=== PATIENT | male | born 1970 | race Caucasian/White ===

== ENCOUNTER 2022-05-08 11:18 | Emergency (ER) | payer MEDICAID ==
[~2022-05-08] VITALS: Ht 190.5 cm; Wt 133.8 kg
[~2022-05-08 11:18] MED LIST: APIX5TAB PO; DEC1 PO; DILT30TA18 PO; HYDR-5092 PO; SOTA80TA PO
[2022-05-08 11:30] VITALS: BP 166/94
[2022-05-08] MEDS ORDERED: KETOROLAC 30 MG/ML VIAL IM ONE (12:30)
[2022-05-08] MEDS ORDERED: NAPR-1704 PO (12:31)
[2022-05-08] MEDS ORDERED: IBUP-2213 PO (12:39)
[2022-05-08] MEDS ORDERED: ACET-8386 PO (12:54)
[2022-05-08 13:10] VITALS: BP 134/87
== END 2022-05-08 13:10 | disposition home or self-care (01) ==
LOC: MED 11:18
DX: M17.11 Unilateral primary osteoarthritis, right knee (principal); Z79.899 Other long term (current) drug therapy; W19.XXXA Unspecified fall, initial encounter; Y93.89 Activity, other specified; Y93.82 Activity, spectator at an event; Y99.8 Other external cause status
CPT/HCPCS: 73562; 96372; 99283; J1885

== ENCOUNTER 2023-07-02 21:35 | Emergency (ER) | payer MEDICAID ==
[~2023-07-02] VITALS: Ht 190.5 cm; Wt 131.5 kg
[~2023-07-02 21:35] MED LIST changes: +ACET-8905 PO; +IBUP-2213 PO
[2023-07-02 21:55] VITALS: BP 148/82; PULSE 71; RESP 16; TEMP 98; O2SAT 99
[2023-07-02] MEDS ORDERED: IBUPROFEN 600 MG TAB PO ONE (22:35)
[2023-07-02 22:39] VITALS: O2SAT 99
[2023-07-02] MEDS ORDERED: IBUPROFEN 600 MG TAB ONE (23:38)
== END 2023-07-03 00:40 | disposition home or self-care (01) ==
LOC: MED 21:35
DX: S39.012A Strain of muscle, fascia and tendon of lower back, initial encounter (principal); Z79.899 Other long term (current) drug therapy; Z79.01 Long term (current) use of anticoagulants; Z79.1 Long term (current) use of non-steroidal anti-inflammatories (NSAID); I25.2 Old myocardial infarction; W18.39XA Other fall on same level, initial encounter; Y92.89 Other specified places as the place of occurrence of the external cause; Y93.89 Activity, other specified; Y99.8 Other external cause status
CPT/HCPCS: 72110; 72170; 99284

== ENCOUNTER 2023-07-03 17:31 | Inpatient (IN) | payer MEDICAID ==
[~2023-07-03] VITALS: Ht 180.3 cm; Wt 126.6 kg
[2023-07-03 17:46] VITALS: BP 111/58; PULSE 96; RESP 18; TEMP 97.8; O2SAT 100
[2023-07-03 20:36] LABS: BASOPHILS % (AUTO) 0.4 % (0.0-2.0); EOSINOPHILS # (AUTO) 0.4 K/uL (0-0.4); EOSINOPHILS % (AUTO) 3.6 % (0.0-4.0); HEMATOCRIT 41.8 % (36-52); HEMOGLOBIN 14.1 g/dL (12.0-18.0); LYMPHOCYTES # (AUTO) 1.9 K/uL (2.0-11.5); LYMPHOCYTES % (AUTO) 17.5 % (20.5-51.1); MEAN CORPUSCULAR HEMOGLOBIN 33 pg (27-31); MEAN CORPUSCULAR HGB CONC 34 g/dL (33-37); MEAN CORPUSCULAR VOLUME 97.3 fL (80-94); MONOCYTES # (AUTO) 0.7 K/uL (0.8-1.0); MONOCYTES % (AUTO) 6.3 % (1.7-9.3); NEUTROPHILS # (AUTO) 7.8 K/uL (1.8-7.7); NEUTROPHILS % (AUTO) 72.2 % (42.2-75.2); PLATELET COUNT (AUTO) 223 K/uL (140-450); RED BLOOD CELL COUNT(AUTO) 4.29 MIL/uL (4.20-6.10); RED CELL DISTRIBUTION WIDTH 14.7 % (11.6-13.7); WHITE BLOOD COUNT (AUTO) 10.7 K/uL (4.8-10.8)
[2023-07-03 20:45] LABS: CALCIUM 8.4 mg/dL (8.5-10.1); CARBON DIOXIDE 26.6 mmol/L (21-32); CREATININE 0.7 mg/dL (0.6-1.3); POTASSIUM 3.6 mmol/L (3.5-5.1)
[2023-07-03] MEDS ORDERED: LIDOCAINE 5% 1 EA PATCH TP ONE (21:29)
[2023-07-03] MEDS ORDERED: KETOROLAC 30 MG/ML VIAL ONE (21:29)
[2023-07-03] MEDS: KETOROLAC 30 MG/ML VIAL IM ONE (21:43)
[2023-07-03] MEDS: LIDOCAINE 5% 1 EA PATCH TP ONE (21:44)
[2023-07-04] VITALS (8 sets, daily range): PULSE 91; RESP 18; O2SAT 93–100
[2023-07-04] MEDS ORDERED: ACETAMINOPHEN 325 MG TAB PO PRN (01:45)
[2023-07-04 07:00] LABS: BASOPHILS % (AUTO) 0.6 % (0.0-2.0); EOSINOPHILS # (AUTO) 0.4 K/uL (0-0.4); EOSINOPHILS % (AUTO) 4.3 % (0.0-4.0); HEMATOCRIT 40.7 % (36-52); HEMOGLOBIN 13.9 g/dL (12.0-18.0); LYMPHOCYTES # (AUTO) 1.4 K/uL (2.0-11.5); MEAN CORPUSCULAR HEMOGLOBIN 33 pg (27-31); MEAN CORPUSCULAR HGB CONC 34 g/dL (33-37); MEAN CORPUSCULAR VOLUME 97.4 fL (80-94); MONOCYTES # (AUTO) 0.7 K/uL (0.8-1.0); MONOCYTES % (AUTO) 7.6 % (1.7-9.3); NEUTROPHILS # (AUTO) 6.2 K/uL (1.8-7.7); NEUTROPHILS % (AUTO) 71.5 % (42.2-75.2); PLATELET COUNT (AUTO) 189 K/uL (140-450); RED BLOOD CELL COUNT(AUTO) 4.18 MIL/uL (4.20-6.10); RED CELL DISTRIBUTION WIDTH 14.8 % (11.6-13.7); WHITE BLOOD COUNT (AUTO) 8.6 K/uL (4.8-10.8)
[2023-07-04 07:38] LABS: ALBUMIN 2.7 g/dL (3.4-5.0); ANION GAP 14.9 (8-16); CALCIUM 8.2 mg/dL (8.5-10.1); CARBON DIOXIDE 23.8 mmol/L (21-32); CREATININE 0.6 mg/dL (0.6-1.3); MAGNESIUM 1.7 mg/dL (1.8-2.4); PHOSPHORUS 2.7 mg/dL (2.5-4.9); POTASSIUM 3.7 mmol/L (3.5-5.1); TOTAL BILIRUBIN 2.1 mg/dL (0.0-1.0); TOTAL PROTEIN, SERUM 7.7 g/dL (6.4-8.2)
[2023-07-04] MEDS: MORPHINE SULFATE 2 MG/ML SYR IVP PRN (07:38)
[2023-07-04 10:50] LABS: BILIRUBIN,URINE NEGATIVE (NEGATIVE); BLOOD, URINE TRACE-I (NEGATIVE); COLOR,URINE YELLOW (YELLOW); LEUKOCYTE ESTERASE ,URINE TRACE (NEGATIVE); NITRITE, URINE POSITIVE (NEGATIVE); PROTEIN,URINE TRACE (NEGATIVE); UGLUCOSE NEGATIVE (NEGATIVE)
[2023-07-04 11:13] LABS: APPEARANCE,URINE SLIGHTLY HAZY (CLEAR); BACTERIA,URINE 1+ /HPF (None Seen); RBC,URINE 0-5 /HPF (0-5); SQUAMOUS EPITHELIAL CELL,UR 0-3 (FEW) /LPF (0-3 (FEW)); WBC,URINE 0-5 /HPF (0-5)
[2023-07-04] MEDS: HYDROcodone/APAP 5/325 MG 1 TAB TAB PO PRN (16:21)
[2023-07-05 01:12] VITALS: BP 137/85; PULSE 91; RESP 18; TEMP 98.1; O2SAT 93
[2023-07-05 04:00] VITALS: BP 143/80; PULSE 89; RESP 18; TEMP 98.6; O2SAT 95
[2023-07-05 08:00] VITALS: BP 133/83; PULSE 88; PULSE 96; RESP 17; RESP 18; TEMP 97.4; O2SAT 91; O2SAT 95
[2023-07-05 16:00] VITALS: BP 132/79; PULSE 96; RESP 18; TEMP 98.9; O2SAT 95
[2023-07-05 20:00] VITALS: BP 147/81; PULSE 100; PULSE 93; RESP 18; TEMP 98.9; O2SAT 94; O2SAT 96
[2023-07-06 04:00] VITALS: BP 116/70; PULSE 95; RESP 18; TEMP 97.6; O2SAT 95
[2023-07-06 08:00] VITALS: BP 115/73; PULSE 92; RESP 18; TEMP 99.1; O2SAT 99
[2023-07-06] MEDS ORDERED: ACETAMINOPHEN 325 MG TAB PO PRN (11:26)
[2023-07-06 20:00] VITALS: BP 104/72; PULSE 97; RESP 18; TEMP 98.4; O2SAT 95
[2023-07-06] MEDS: HYDROcodone/APAP 5/325 MG 1 TAB TAB PO PRN (20:24)
[2023-07-07 04:00] VITALS: BP 109/68; PULSE 90; RESP 18; TEMP 98.8; O2SAT 96
[2023-07-07 08:00] VITALS: PULSE 84; RESP 18; O2SAT 96
[2023-07-07] MEDS: POLYETHYLENE GLYCOL 17 GM/PKT PO SCH (11:15)
[2023-07-07 12:00] VITALS: BP 123/65; PULSE 84; RESP 18; TEMP 98.5; O2SAT 96
[2023-07-07] MEDS: DOCUSATE SODIUM 100 MG GELCAP PO SCH (14:26)
[2023-07-07 15:59] VITALS: O2SAT 94
[2023-07-07 20:00] VITALS: BP 134/73; PULSE 102; RESP 18; TEMP 98.2; O2SAT 96
[2023-07-07] MEDS: NITROFURANTOIN 100 MG CAP PO SCH (20:19)
[2023-07-08 04:00] VITALS: BP 125/66; PULSE 103; RESP 18; TEMP 98.1; O2SAT 96
[2023-07-08 08:00] VITALS: PULSE 101; RESP 19; O2SAT 93
[2023-07-08] MEDS: DOCUSATE SODIUM 100 MG GELCAP PO SCH (09:12)
[2023-07-08 12:00] VITALS: BP 102/65; PULSE 101; RESP 19; TEMP 98; O2SAT 93
[2023-07-08 20:00] VITALS: BP 138/64; PULSE 102; PULSE 97; RESP 18; TEMP 99; O2SAT 100; O2SAT 96
[2023-07-09 04:00] VITALS: BP 110/55; PULSE 92; RESP 18; TEMP 98.4; O2SAT 97
[2023-07-09 08:00] VITALS: BP 113/72; PULSE 84; RESP 18; TEMP 98.6; O2SAT 98
[2023-07-09 09:08] VITALS: PULSE 89; RESP 18; O2SAT 98
[2023-07-09 20:00] VITALS: BP 115/73; PULSE 98; RESP 18; TEMP 98.4; O2SAT 96; O2SAT 97
[2023-07-10 04:00] VITALS: BP_SYST 103; BP_SYST 108; BP_DIAS 54; BP_DIAS 77; PULSE 78; PULSE 88; RESP 18; TEMP 98.2; O2SAT 96
[2023-07-10 08:00] VITALS: BP 124/71; PULSE 74; RESP 18; TEMP 98.8; O2SAT 95
[2023-07-10 16:00] VITALS: BP 130/74; PULSE 70; RESP 18; TEMP 98.4; O2SAT 99
[2023-07-10 20:00] VITALS: BP 133/74; PULSE 87; PULSE 97; RESP 18; TEMP 98.2; O2SAT 94
[2023-07-11 07:11] VITALS: BP 134/68; PULSE 78; RESP 18; TEMP 98; O2SAT 95
[2023-07-11 07:21] LABS: BASOPHILS # (AUTO) 0.1 K/uL (0.00-0.22); BASOPHILS % (AUTO) 0.7 % (0.0-2.0); EOSINOPHILS # (AUTO) 0.3 K/uL (0-0.4); EOSINOPHILS % (AUTO) 3.9 % (0.0-4.0); HEMATOCRIT 38.7 % (36-52); HEMOGLOBIN 13.1 g/dL (12.0-18.0); LYMPHOCYTES # (AUTO) 2.3 K/uL (2.0-11.5); LYMPHOCYTES % (AUTO) 28.9 % (20.5-51.1); MEAN CORPUSCULAR HEMOGLOBIN 33 pg (27-31); MEAN CORPUSCULAR HGB CONC 34 g/dL (33-37); MEAN CORPUSCULAR VOLUME 98.1 fL (80-94); MONOCYTES % (AUTO) 12.8 % (1.7-9.3); NEUTROPHILS # (AUTO) 4.2 K/uL (1.8-7.7); NEUTROPHILS % (AUTO) 53.7 % (42.2-75.2); PLATELET COUNT (AUTO) 307 K/uL (140-450); RED BLOOD CELL COUNT(AUTO) 3.95 MIL/uL (4.20-6.10); RED CELL DISTRIBUTION WIDTH 14.6 % (11.6-13.7); WHITE BLOOD COUNT (AUTO) 7.8 K/uL (4.8-10.8)
[2023-07-11 08:00] VITALS: BP 121/74; PULSE 72; RESP 18; TEMP 96.6; O2SAT 99
[2023-07-11 16:00] VITALS: BP 139/68; PULSE 74; RESP 19; TEMP 98.1; O2SAT 98
[2023-07-11] MEDS ORDERED: NITR100C15 PO (16:54)
[2023-08-14] MEDS ORDERED: PRED20TA5 PO (16:17)
[2023-08-14] MEDS ORDERED: PANT40EC56 PO (16:17)
[2023-08-14] MEDS ORDERED: GABA300C55 PO (16:17)
[2023-08-14] MEDS ORDERED: METH-1866 PO (16:17)
[2023-08-14] MEDS ORDERED: OXY5 PO (16:17)
[2023-08-14] MEDS ORDERED: APIX2.5 PO (16:17)
== END 2023-07-11 20:45 | disposition short-term general hospital (02) | DRG 347 ==
LOC: MED 17:31 → MMU 07-04 02:47 → MTU 07-04 20:07
PROVIDERS: ADMIT Family Medicine; ATTEND Family Medicine
DX: S32.041A Stable burst fracture of fourth lumbar vertebra, initial encounter for closed fracture (principal); E43 Unspecified severe protein-calorie malnutrition; E66.01 Morbid (severe) obesity due to excess calories; Z20.822 Contact with and (suspected) exposure to COVID-19; M25.562 Pain in left knee; W18.39XA Other fall on same level, initial encounter; Y93.89 Activity, other specified; Y92.89 Other specified places as the place of occurrence of the external cause; Y99.8 Other external cause status; Z68.38 Body mass index [BMI] 38.0-38.9, adult
CPT/HCPCS: 36415; 72131; 73110; 73130; 73560; 80048; 80053; 81001; 83735; 84100; 85025; 85730; 87086; 96372; 99285; J1644; J1885; J2270; Q0092